=== PATIENT | female | born 1970 | race Two or more races ===

== ENCOUNTER 2016-03-13 06:59 | Day surgery (SDC) | payer OTHER ==
[~2016-03-13 06:59] MED LIST: FENTANYL 250 MCG/5 ML AMP IV PRN; LACTATED RINGERS 1,000 ML IV SCH; MIDAZOLAM HCL 5 MG/5 ML VIAL IV PRN
[2016-03-13] MEDS ORDERED: IV START KIT ONE (07:18)
== END 2016-03-13 10:44 | disposition home or self-care (01) ==
LOC: SDC 06:59
PROVIDERS: ATTEND Internal Medicine Gastroenterology
PROC: 0DJD8ZZ Inspection of Lower Intestinal Tract, Via Natural or Artificial Opening Endoscopic (ICD-10-PCS; principal; 2016-03-13)
DX: K64.1 Second degree hemorrhoids (principal); K59.8 Other specified functional intestinal disorders; E66.9 Obesity, unspecified; Z68.39 Body mass index [BMI] 39.0-39.9, adult
CPT/HCPCS: 45378; J3010; J2250; J7120